=== PATIENT | male | born 1990 | race African-American/Black ===

== ENCOUNTER 2018-11-30 10:18 | Emergency (ER) | payer BC ==
[~2018-11-30] VITALS: Ht 193 cm; Wt 113.4 kg
[2018-11-30] MEDS ORDERED: HYDROCODONE/APAP 10-325 MG TABLET PO ONE (11:15)
[2018-11-30] MEDS ORDERED: AMOXICILLIN TRIHYDRATE 250 MG CAPSULE PO ONE (11:15)
[2018-11-30] MEDS ORDERED: AMOXICILLIN TRIHYDRATE 250 MG CAPSULE ONE (11:27)
[2018-11-30] MEDS ORDERED: HYDROCODONE/APAP 10-325 MG TABLET ONE (11:27)
--- NOTE | 2018-11-30 11:31 | NUR ---
Patient discharged to home in stable conditon. Written and verbal after care instructions given. Patient verbalizes understanding of instructions.
== END 2018-11-30 11:33 | disposition home or self-care (01) ==
LOC: ER 10:18
DX: K08.89 Other specified disorders of teeth and supporting structures (principal)
CPT/HCPCS: A4663